=== PATIENT | male | born 1945 | race Two or more races ===

== ENCOUNTER 2019-07-08 18:49 | Emergency (ER) | payer SELFPAY ==
[2019-07-08] MEDS ORDERED: EPINEPHRINE 0.1MG/ML (1:10,000) 10ML SYR ONE (18:59)
[2019-07-08] MEDS ORDERED: SODIUM BICARBONATE 8.4% 1 MEQ/ML 50ML SYR IV ONE ×2 (18:59→19:05)
[2019-07-08] MEDS ORDERED: CALCIUM CHLORIDE 1GM/10ML SYR IV ONE ×3 (19:00→19:06)
[2019-07-08] MEDS ORDERED: ALTEPLASE IV SCH (19:15)
[2019-07-08] MEDS ORDERED: DOPAMINE 400MG/250ML PREMIX 250 ML IV ONE (19:22)
[2019-07-08 19:35] VITALS: BP 0/0
== END 2019-07-08 22:54 | disposition expired ==
LOC: ER 18:49 → EDBD 18:49 → ER 22:54
DX: I46.9 Cardiac arrest, cause unspecified (principal); J96.90 Respiratory failure, unspecified, unspecified whether with hypoxia or hypercapnia; R18.8 Other ascites; E11.9 Type 2 diabetes mellitus without complications
CPT/HCPCS: 92950; 99291; J1265; J2997; J3490